=== PATIENT | female | born 1930 | race Caucasian/White ===

== ENCOUNTER 2021-01-28 13:03 | Observation (INO) | payer MEDICARE, BC ==
[2021-01-28] MEDS ORDERED: Sodium Chloride 0.9% 10 ML Syringe FLUSH PRN (13:06)
[2021-01-28] MEDS ORDERED: Sodium Chloride 0.9% 2.5 ML Syringe FLUSH PRN (13:06)
[2021-01-28] MEDS ORDERED: Sodium Chloride 0.9% 1,000 ML IV ONE ×3 (13:10→18:01)
[2021-01-28] MEDS ORDERED: Atropine 0.1 MG/ML 10 ML Syringe IVPUSH ONE (13:10)
--- NOTE | 2021-01-28 13:15 | EDM.PDOC ---
ED HPI GENERAL MEDICAL PROBLEM - General Chief Complaint: Neuro Symptoms/Deficits Stated Complaint: WEAKNESS Time Seen by Provider: 01/28/21 13:05 Source of Information: Reports: Patient, Family History Limitations: Reports: Other (dementia) - History of Present Illness INITIAL COMMENTS - FREE TEXT/NARRATIVE: 89-year-old female past medical history hypertension, dementia, vision and hearing problems presents for syncopal episode. History is very limited. Per EMS patient was at an eye doctor appointment and was complaining of dizziness prompting them to call EMS. Per patient's daughter patient had a near syncopal episode while at the eye doctor. She was leaning forward and looked as if she was about to pass out. She was assisted down to the ground and never actually did fall. Daughter notes that should patient lose pulses she would not want CPR or intubation. - Related Data Allergies Allergy/AdvReac Type Severity Reaction Status Date / Time No Known Allergies Allergy Verified 01/28/21 13:30 Home Meds: Home Meds Aspirin 81 mg PO DAILY 01/28/21 [History] Cholecalciferol (Vitamin D3) [Vitamin D3] 1,000 unit PO DAILY 01/28/21 [History] Donepezil HCl 10 mg PO DAILY@1800 01/28/21 [History] LORazepam [Ativan] 0.25 mg PO BEDTIME 01/28/21 [History] Losartan [Cozaar] 125 mg PO DAILY 01/28/21 [History] Metoprolol Tartrate [Lopressor] 25 mg PO Q12HR 01/28/21 [History] Sertraline [Zoloft] 50 mg PO DAILY 01/28/21 [History] Thyroid [[place] Thyroid] 60 mg PO ACDINNER 01/28/21 [History] amLODIPine [Norvasc] 5 mg PO DAILY 01/28/21 [History] cilostazoL [Cilostazol] 100 mg PO BID 01/28/21 [History] ED ROS GENERAL - Review of Systems Review Of Systems: Comprehensive ROS is negative, except as noted in HPI. ED EXAM, GENERAL - Physical Exam Exam: See Below Exam Limited By: No Limitations General Appearance: Alert, WD/WN, No Apparent Distress Eye Exam: Bilateral Eye: PERRL Throat/Mouth: Normal Voice, No Airway Compromise Head: Atraumatic, Normocephalic Neck: Normal Inspection Respiratory/Chest: No Respiratory Distress, Lungs Clear, Normal Breath Sounds, No Accessory Muscle Use Cardiovascular: Normal Peripheral Pulses, No Edema, Bradycardia GI/Abdominal: Soft, Non-Tender Extremities: Normal Inspection Neurological: Alert Psychiatric: Anxious Skin Exam: Warm, Dry, Intact, Normal Color #1 Interpretation EKG Date: 01/28/21 Time: 13:33 Rhythm: NSR Rate (Beats/Min): 73 [place]: Normal P-Wave: Present QRS: Normal ST-T: Normal QT: Normal [place]/PQ Interval: 153 Comparison: NA - No Prior EKG EKG Interpretation Comments: no acute ischemic changes Course - Vital Signs Last Recorded V/S: Last Vital Signs Temp 98.1 F 01/28/21 15:17 Pulse 68 01/28/21 17:43 Resp 18 01/28/21 17:43 BP 130/71 01/28/21 17:43 Pulse Ox 97 01/28/21 17:43 - Orders/Labs/Meds Orders: Active Orders 24 hr Category Date Time Status Accu Check [Blood Glucose Check, Bedside] [RC] ONETIME Care 01/28/21 13:07 Active Cardiac Monitoring [RC] . DIRECTED Care 01/28/21 13:06 Active Oxygen Therapy [RC] ASDIRECTED Care 01/28/21 13:09 Active Pulse Oximetry [RC] ASDIRECTED Care 01/28/21 13:06 Active REFLEX LACTIC ACID YES OR NO [CHEM] Routine Lab 01/28/21 15:18 Received Sodium Chloride 0.9% [Saline Flush] Med 01/28/21 13:06 Active 10 ml FLUSH ASDIRECTED PRN Sodium Chloride 0.9% [Saline Flush] Med 01/28/21 13:06 Active 2.5 ml FLUSH ASDIRECTED PRN Saline Lock Insert [OM.PC] Stat Oth 01/28/21 13:06 Ordered Medication Orders Sodium Chloride (Sodium Chloride 0.9% 10 Ml Syringe) 10 ml FLUSH ASDIRECTED PRN PRN Reason: Keep Vein Open Last Admin: 01/28/21 13:29 Dose: 10 ml Documented by: JENNIFER Sodium Chloride (Sodium Chloride 0.9% 2.5 Ml Syringe) 2.5 ml FLUSH ASDIRECTED PRN PRN Reason: Keep Vein Open Last Admin: 01/28/21 13:29 Dose: 2.5 ml Documented by: JENNIFER Labs: Laboratory Tests 01/28/21 01/28/21 01/28/21 Range/Units 13:11 14:15 14:35 WBC (4.0-11.0) K/uL RBC (4.30-5.90) M/uL Hgb (12.0-16.0) g/dL Hct (36.0-46.0) % MCV (80.0-98.0) fL MCH (27.0-32.0) pg MCHC (31.0-37.0) g/dL RDW Std Deviation (28.0-62.0) fl RDW Coeff of Scooby (11.0-15.0) % Plt Count (150-400) K/uL MPV (7.40-12.00) fL Neut % (Auto) (48.0-80.0) % Lymph % (Auto) (16.0-40.0) % [place] % (Auto) (0.0-15.0) % Eos % (Auto) (0.0-7.0) % Baso % (Auto) (0.0-1.5) % Neut # (Auto) (1.4-5.7) K/uL Lymph # (Auto) (0.6-2.4) K/uL [place] # (Auto) (0.0-0.8) K/uL Eos # (Auto) (0.0-0.7) K/uL Baso # (Auto) (0.0-0.1) K/uL Nucleated RBC % /100WBC Nucleated RBCs # K/uL INR APTT (18.6-31.3) SEC D-Dimer, Quantitative (0.0-0.50) mg/L FEU Sodium 139 (136-145) mmol/L Potassium 4.0 (3.5-5.1) mmol/L Chloride 102 (98-107) mmol/L Carbon Dioxide 30.5 (21.0-32.0) mmol/L BUN 22 H (7.0-18.0) mg/dL Creatinine 1.2 H (0.6-1.0) mg/dL Est Cr Clr Drug Dosing 21.81 mL/min Estimated GFR (MDRD) 42.4 ml/min Glucose 109 H (74-106) mg/dL POC Glucose 212 H (70-99) mg/dL Lactic Acid (0.4-2.0) mmol/L Calcium 8.2 L (8.5-10.1) mg/dL Magnesium 2.0 (1.8-2.4) mg/dL Total Bilirubin 0.5 (0.2-1.0) mg/dL AST 20 (15-37) IU/L ALT 19 (14-63) IU/L Alkaline Phosphatase 82 (46-116) U/L Troponin I < 0.050 (0.000-0.056) ng/mL B-Natriuretic Peptide (<100) PG/ML Total Protein 5.9 L (6.4-8.2) g/dL Albumin 3.0 L (3.4-5.0) g/dL Globulin 2.9 (2.6-4.0) g/dL Albumin/Globulin Ratio 1.0 (0.9-1.6) TSH, Ultra Sensitive 3.27 (0.36-3.74) uIU/mL Urine Color Urine Appearance Urine pH (5.0-8.0) Ur Specific [place] (1.001-1.035) Urine Protein (NEGATIVE) mg/dL Urine Glucose (UA) (NEGATIVE) mg/dL Urine Ketones (NEGATIVE) mg/dL Urine Occult Blood (NEGATIVE) Urine Nitrite (NEGATIVE) Urine Bilirubin (NEGATIVE) Urine Ictotest Urine Urobilinogen (<2.0) EU/dL Ur Leukocyte Esterase (NEGATIVE) U Hyaline Cast (Auto) (0-2/LPF) Urine RBC (0-2/HPF) Urine WBC (0-5/HPF) Ur Epithelial Cells (NONE-FEW) Urine Bacteria (NEGATIVE) Urine Mucus (NONE-MOD) SARS-CoV-2 RNA (INDIO) NEGATIVE (NEGATIVE) 01/28/21 01/28/21 01/28/21 Range/Units 14:35 14:35 14:35 WBC 4.30 (4.0-11.0) K/uL RBC 3.50 L (4.30-5.90) M/uL Hgb 11.7 L (12.0-16.0) g/dL Hct 34.4 L (36.0-46.0) % MCV 98.3 H (80.0-98.0) fL MCH 33.4 H (27.0-32.0) pg MCHC 34.0 (31.0-37.0) g/dL RDW Std Deviation 47.7 (28.0-62.0) fl RDW Coeff of Scooby 13 (11.0-15.0) % Plt Count 194 (150-400) K/uL MPV 8.70 (7.40-12.00) fL Neut % (Auto) 86.8 H (48.0-80.0) % Lymph % (Auto) 5.1 L (16.0-40.0) % [place] % (Auto) 6.7 (0.0-15.0) % Eos % (Auto) 0.9 (0.0-7.0) % Baso % (Auto) 0.5 (0.0-1.5) % Neut # (Auto) 3.7 (1.4-5.7) K/uL Lymph # (Auto) 0.2 L (0.6-2.4) K/uL [place] # (Auto) 0.3 (0.0-0.8) K/uL Eos # (Auto) 0.0 (0.0-0.7) K/uL Baso # (Auto) 0.0 (0.0-0.1) K/uL Nucleated RBC % 0.0 /100WBC Nucleated RBCs # 0 K/uL INR APTT (18.6-31.3) SEC D-Dimer, Quantitative (0.0-0.50) mg/L FEU Sodium (136-145) mmol/L Potassium (3.5-5.1) mmol/L Chloride (98-107) mmol/L Carbon Dioxide (21.0-32.0) mmol/L BUN (7.0-18.0) mg/dL Creatinine (0.6-1.0) mg/dL Est Cr Clr Drug Dosing mL/min Estimated GFR (MDRD) ml/min Glucose (74-106) mg/dL POC Glucose (70-99) mg/dL Lactic Acid 5.7 H* (0.4-2.0) mmol/L Calcium (8.5-10.1) mg/dL Magnesium (1.8-2.4) mg/dL Total Bilirubin (0.2-1.0) mg/dL AST (15-37) IU/L ALT (14-63) IU/L Alkaline Phosphatase (46-116) U/L Troponin I (0.000-0.056) ng/mL B-Natriuretic Peptide 358 H (<100) PG/ML Total Protein (6.4-8.2) g/dL Albumin (3.4-5.0) g/dL Globulin (2.6-4.0) g/dL Albumin/Globulin Ratio (0.9-1.6) TSH, Ultra Sensitive (0.36-3.74) uIU/mL Urine Color Urine Appearance Urine pH (5.0-8.0) Ur Specific [place] (1.001-1.035) Urine Protein (NEGATIVE) mg/dL Urine Glucose (UA) (NEGATIVE) mg/dL Urine Ketones (NEGATIVE) mg/dL Urine Occult Blood (NEGATIVE) Urine Nitrite (NEGATIVE) Urine Bilirubin (NEGATIVE) Urine Ictotest Urine Urobilinogen (<2.0) EU/dL Ur Leukocyte Esterase (NEGATIVE) U Hyaline Cast (Auto) (0-2/LPF) Urine RBC (0-2/HPF) Urine WBC (0-5/HPF) Ur Epithelial Cells (NONE-FEW) Urine Bacteria (NEGATIVE) Urine Mucus (NONE-MOD) SARS-CoV-2 RNA (INDIO) (NEGATIVE) 01/28/21 01/28/21 01/28/21 Range/Units 14:35 15:00 16:51 WBC (4.0-11.0) K/uL RBC (4.30-5.90) M/uL Hgb (12.0-16.0) g/dL Hct (36.0-46.0) % MCV (80.0-98.0) fL MCH (27.0-32.0) pg MCHC (31.0-37.0) g/dL RDW Std Deviation (28.0-62.0) fl RDW Coeff of Scooby (11.0-15.0) % Plt Count (150-400) K/uL MPV (7.40-12.00) fL Neut % (Auto) (48.0-80.0) % Lymph % (Auto) (16.0-40.0) % [place] % (Auto) (0.0-15.0) % Eos % (Auto) (0.0-7.0) % Baso % (Auto) (0.0-1.5) % Neut # (Auto) (1.4-5.7) K/uL Lymph # (Auto) (0.6-2.4) K/uL [place] # (Auto) (0.0-0.8) K/uL Eos # (Auto) (0.0-0.7) K/uL Baso # (Auto) (0.0-0.1) K/uL Nucleated RBC % /100WBC Nucleated RBCs # K/uL INR 1.08 APTT 21.9 (18.6-31.3) SEC D-Dimer, Quantitative 3.97 H (0.0-0.50) mg/L FEU Sodium (136-145) mmol/L Potassium (3.5-5.1) mmol/L Chloride (98-107) mmol/L Carbon Dioxide (21.0-32.0) mmol/L BUN (7.0-18.0) mg/dL Creatinine (0.6-1.0) mg/dL Est Cr Clr Drug Dosing mL/min Estimated GFR (MDRD) ml/min Glucose (74-106) mg/dL POC Glucose (70-99) mg/dL Lactic Acid (0.4-2.0) mmol/L Calcium (8.5-10.1) mg/dL Magnesium (1.8-2.4) mg/dL Total Bilirubin (0.2-1.0) mg/dL AST (15-37) IU/L ALT (14-63) IU/L Alkaline Phosphatase (46-116) U/L Troponin I < 0.050 (0.000-0.056) ng/mL B-Natriuretic Peptide (<100) PG/ML Total Protein (6.4-8.2) g/dL Albumin (3.4-5.0) g/dL Globulin (2.6-4.0) g/dL Albumin/Globulin Ratio (0.9-1.6) TSH, Ultra Sensitive (0.36-3.74) uIU/mL Urine Color YELLOW Urine Appearance SLT CLOUDY Urine pH 6.0 (5.0-8.0) Ur Specific [place] 1.025 (1.001-1.035) Urine Protein 30 H (NEGATIVE) mg/dL Urine Glucose (UA) NEGATIVE (NEGATIVE) mg/dL Urine Ketones 15 H (NEGATIVE) mg/dL Urine Occult Blood NEGATIVE (NEGATIVE) Urine Nitrite POSITIVE H (NEGATIVE) Urine Bilirubin SMALL H (NEGATIVE) Urine Ictotest NEGATIVE Urine Urobilinogen 1.0 (<2.0) EU/dL Ur Leukocyte Esterase TRACE H (NEGATIVE) U Hyaline Cast (Auto) 0-2 (0-2/LPF) Urine RBC 0-2 (0-2/HPF) Urine WBC 5-10 (0-5/HPF) Ur Epithelial Cells FEW (NONE-FEW) Urine Bacteria 3+ H (NEGATIVE) Urine Mucus LIGHT (NONE-MOD) SARS-CoV-2 RNA (INDIO) (NEGATIVE) Meds: Medications Generic Name Dose Route Start Last Admin Trade Name Freq PRN Reason Stop Dose Admin Sodium Chloride 10 ml 01/28/21 13:06 01/28/21 13:29 Sodium Chloride 0.9% 10 Ml Syringe FLUSH 10 ml ASDIRECTED PRN Administration Keep Vein Open Sodium Chloride 2.5 ml 01/28/21 13:06 01/28/21 13:29 Sodium Chloride 0.9% 2.5 Ml Syringe FLUSH 2.5 ml ASDIRECTED PRN Administration Keep Vein Open Discontinued Medications Generic Name Dose Route Start Last Admin Trade Name Freq PRN Reason Stop Dose Admin Atropine Sulfate 0.5 mg 01/28/21 13:10 01/28/21 13:28 Atropine 0.1 Mg/Ml 10 Ml Syringe IVPUSH 01/28/21 13:11 0.5 mg ONETIME ONE Administration Sodium Chloride 1,000 mls @ 999 mls/hr 01/28/21 13:10 01/28/21 13:28 Normal Saline IV 01/28/21 14:10 999 mls/hr .Bolus ONE Administration Sodium Chloride 1,000 mls @ 999 mls/hr 01/28/21 15:28 01/28/21 15:35 Normal Saline IV 01/28/21 16:28 999 mls/hr .Bolus ONE Administration Ceftriaxone Sodium/Dextrose 1 50 mls @ 100 mls/hr 01/28/21 15:28 01/28/21 15:35 gm/ Premix IV 01/28/21 15:57 100 mls/hr ONETIME ONE Administration Lorazepam Confirm 01/28/21 17:06 01/28/21 17:10 Lorazepam 2 Mg/Ml Sdv Administered 01/28/21 17:07 Not Given Dose 2 mg .ROUTE .STK-MED ONE Lorazepam 0.5 mg 01/28/21 17:09 01/28/21 17:11 Lorazepam 2 Mg/Ml Sdv IVPUSH 01/28/21 17:10 0.5 mg ONETIME ONE Administration - Re-Assessments/Exams Free Text/Narrative Re-Assessment/Exam: 01/28/21 13:33 Heart rate is improved to 73 after 0.5 mg of atropine. 01/28/21 15:29 Labs are remarkable for elevated lactate, normal white blood cell count, markedly elevated D-dimer, nitrate positive urinalysis. Will give ceftriaxone for UTI. Will give additional 1 L fluid bolus for total 2 L for elevated lactate. Will get CTA of the chest to rule out pulmonary embolism. 01/28/21 18:00 Repeat troponin is negative. Repeat lactate is being drawn now. Patient cannot tolerate CTA imaging of the chest secondary to inability to establish a large bore IV. That being said suspicion for pulmonary embolism is very low given the normal heart rate, lack of hypoxia. Will admit patient to hospitalist service for further work-up and management. Patient has been given antibiotics for UTI. Departure - Departure Time of Disposition: 18:00 Disposition: Refer to Observation Condition: Good Clinical Impression: UTI (urinary tract infection) Qualifiers: Urinary tract infection type: acute cystitis Hematuria presence: without hematuria Qualified Code(s): N30.00 - Acute cystitis without hematuria - Discharge Information Forms: ED Department Discharge Sepsis Event Note (ED) - Evaluation Sepsis Screening Result: No Definite Risk - Focused Exam Vital Signs: Vital Signs Temp Pulse Resp BP Pulse Ox 01/28/21 17:43 68 18 130/71 97 01/28/21 16:38 77 18 132/76 97 01/28/21 16:00 82 18 143/81 H 97 01/28/21 15:48 71 18 138/72 98 01/28/21 15:17 98.1 F 78 18 131/72 98 01/28/21 14:30 62 18 144/73 H 97 01/28/21 14:00 97.8 F 68 18 142/82 H 97 01/28/21 13:45 68 18 131/68 98 01/28/21 13:30 70 20 121/72 95 01/28/21 13:15 97.8 F 62 18 131/72 97 01/28/21 13:04 96.3 F L 47 L 16 98/45 L 86 L 01/28/21 13:03 52 L - My Orders Last 24 Hours: My Active Orders 01/28/21 13:06 Cardiac Monitoring [RC] . DIRECTED Pulse Oximetry [RC] ASDIRECTED Sodium Chloride 0.9% [Saline Flush] 10 ml FLUSH ASDIRECTED PRN Sodium Chloride 0.9% [Saline Flush] 2.5 ml FLUSH ASDIRECTED PRN Saline Lock Insert [OM.PC] Stat 01/28/21 13:07 Accu Check [Blood Glucose Check, Bedside] [RC] ONETIME 01/28/21 13:09 Oxygen Therapy [RC] ASDIRECTED 01/28/21 15:18 REFLEX LACTIC ACID YES OR NO [CHEM] Routine - Assessment/Plan Last 24 Hours: My Active Orders 01/28/21 13:06 Cardiac Monitoring [RC] . DIRECTED Pulse Oximetry [RC] ASDIRECTED Sodium Chloride 0.9% [Saline Flush] 10 ml FLUSH ASDIRECTED PRN Sodium Chloride 0.9% [Saline Flush] 2.5 ml FLUSH ASDIRECTED PRN Saline Lock Insert [OM.PC] Stat 01/28/21 13:07 Accu Check [Blood Glucose Check, Bedside] [RC] ONETIME 01/28/21 13:09 Oxygen Therapy [RC] ASDIRECTED 01/28/21 15:18 REFLEX LACTIC ACID YES OR NO [CHEM] Routine
--- NOTE | 2021-01-28 13:49 | CT ---
INDICATION: Stroke, syncopal episode, unknown if hit head. COMPARISON: None TECHNIQUE: CT of the head without IV contrast. Coronal and sagittal reconstructions are provided. FINDINGS: There is an area of asymmetric low attenuation in the left frontal lobe which could represent a subacute or chronic infarct (series 201, image 21). No associated edema or mass effect. No midline shift. No other evidence of acute infarct. No intracranial hemorrhage or abnormal extra-axial fluid collections. Moderate generalized cerebral and cerebellar volume loss with ex vacuo dilation of the lateral ventricles. Mild chronic small vessel ischemic disease. Orbits and extraocular muscles are symmetric. The paranasal sinuses and mastoid air cells are clear. No acute fracture identified. Soft tissues are unremarkable. IMPRESSION: : 1. 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 No mass effect or midline shift. 2. No other acute intracranial findings. 3. Moderate generalized cerebral volume loss. 4. Findings discussed with Rajiv Christie at 1:47 p.m. on 01/28/2021. Please note that all CT scans at this facility use dose modulation, iterative reconstruction, and/or weight-based dosing when appropriate to reduce radiation dose to as low as reasonably achievable. Dictated by Rowan Driver MD @ 01/28/2021 1:48:21 PM (Electronically Signed)
--- NOTE | 2021-01-28 14:15 | CR ---
INDICATION: Syncopal episode. TECHNIQUE: Upright portable AP image of the chest. COMPARISON: None. FINDINGS: Lungs and pleural spaces clear. Small calcified granuloma in the upper right lung. Post coronary bypass. Heart, mediastinum and pulmonary vessels normal. No significant osseous abnormality. IMPRESSION: 1. No acute abnormality. 2. Post coronary bypass. Dictated by Dane Carmona MD @ 01/28/2021 2:13:38 PM (Electronically Signed)
[2021-01-28 15:13] LABS: BLOOD UREA NITROGEN,BUN 22 mg/dL (7.0-18.0); CARBON DIOXIDE,CO2 30.5 mmol/L (21.0-32.0); CHLORIDE,CL 102 mmol/L (98-107); GLUCOSE RANDOM 109 mg/dL (74-106); SODIUM,NA 139 mmol/L (136-145)
[2021-01-28] MEDS ORDERED: cefTRIAXone 1 GM in Premix Bag 1 BAG IV ONE (15:28)
[2021-01-28] MEDS ORDERED: LORazepam 2 MG/ML SDV ONE (17:06)
[2021-01-28] MEDS ORDERED: LORazepam 2 MG/ML SDV IVPUSH ONE (17:09)
[2021-01-28] MEDS ORDERED: Morphine 10 MG/ML Syringe IVPUSH PRN (18:22)
[2021-01-28] MEDS ORDERED: Ondansetron 4 MG/2 ML SDV IVPUSH PRN (18:22)
[2021-01-28] MEDS ORDERED: Acetaminophen 325 MG Tab PO PRN (18:22)
[2021-01-28] MEDS ORDERED: Lactated Ringers 1,000 ML IV SCH (18:30)
[2021-01-28] MEDS ORDERED: Enoxaparin 30 MG/0.3 ML Syringe SUBCUT SCH (18:30)
--- NOTE | 2021-01-28 18:37 | PCM.HP.2 ---
H&P History of Present Illness - General Date of Service: 01/28/21 Admit Problem/Dx: Admission Diagnosis/Problem Admission Diagnosis/Problem UTI (urinary tract infection) due to urinary indwelling catheter - History of Present Illness Initial Comments - Free Text/Narative: 89-year-old female past medical history hypertension, dementia, glaucoma, recent TIA in November, vision and hearing problems presents for pre-syncopal episode. Per patient's daughter patient had a near syncopal episode while waiting for her eye doctor appointment. She was leaning forward and looked as if she was about to pass out. She was assisted down to the ground and never actually did fall. Daughter states that she looked dazed but never actually passed out. In the ER patient was found to be bradycardic in 40s with low blood pressure, although documented in the MAR patient is hypoxic but upon talking to the physician he states that that reading is not accurate and patient was actually never hypoxic in the ER. Patient received 25 mg of atropine which increased her heart rate. Patient also received IV fluid resuscitation which improved her blood pressure as well. Daughter stated that in case patient loses weight she does not want any CPR. Patient is DNR/DNI. Labs are remarkable for elevated lactate, normal white blood cell count, markedly elevated D-dimer, nitrate positive urinalysis. Patient was given ceftriaxone for UTI. An additional 1 L fluid bolus for total 2 L for elevated lactate was given as well. Repeat troponin was negative there was no concern of ACS on EKG. CTA of the chest to rule out a PE could not be done t because Of IV Line Could Not Be Established and the Patient As Patient Was Unable to Tolerate Any Needle BX and Was in Extreme Discomfort. Patient was admitted to the hospital for further management. To encounter patient's daughter was at bedside she states that patient is at her baseline mentation pleasantly confused. Patient is very hard of hearing without her hearing aids so history was limited and mostly obtained from patient's daughter. Patient's daughter at this point would not like to get any morning labs she states that in case patient deteriorates again she does not want any life-saving interventions she is not interested in central line pressors/and reiterated that patient is DNR/DNI. Daughter states that she would like to explore possibility of palliative/comfort care/hospice depending upon patient's hospital course. Patient lives at assisted living facility outside of the town. - Related Data Allergies/Adverse Reactions: Allergies Allergy/AdvReac Type Severity Reaction Status Date / Time No Known Allergies Allergy Verified 01/28/21 22:50 Home Medications: Home Meds Aspirin 81 mg PO DAILY 01/28/21 [History] Cholecalciferol (Vitamin D3) [Vitamin D3] 1,000 unit PO DAILY 01/28/21 [History] Donepezil HCl 10 mg PO DAILY@1800 01/28/21 [History] LORazepam [Ativan] 0.25 mg PO BEDTIME 01/28/21 [History] Losartan [Cozaar] 125 mg PO DAILY 01/28/21 [History] Metoprolol Tartrate [Lopressor] 25 mg PO Q12HR 01/28/21 [History] Sertraline [Zoloft] 50 mg PO DAILY 01/28/21 [History] Thyroid [Judsonia Thyroid] 60 mg PO ACDINNER 01/28/21 [History] amLODIPine [Norvasc] 5 mg PO DAILY 01/28/21 [History] cilostazoL [Cilostazol] 100 mg PO BID 01/28/21 [History] Past Medical History HEENT History: Reports: Glaucoma Cardiovascular History: Reports: Hypertension, Other (See Below) Other Cardiovascular History: PAD Respiratory History: Reports: None Gastrointestinal History: Reports: None Genitourinary History: Reports: None [employer] History: Reports: None Musculoskeletal History: Reports: None Neurological History: Reports: TIA Psychiatric History: Reports: Anxiety, Dementia, Depression Endocrine/Metabolic History: Reports: Hypothyroidism Hematologic History: Reports: None Immunologic History: Reports: None Oncologic (Cancer) History: Reports: None Dermatologic History: Reports: None - Infectious Disease History Infectious Disease History: Reports: None - Past Surgical History Head Surgeries/Procedures: Reports: None HEENT Surgical History: Reports: None Cardiovascular Surgical History: Reports: None Respiratory Surgical History: Reports: None GI Surgical History: Reports: None Female Surgical History: Reports: None Endocrine Surgical History: Reports: None Neurological Surgical History: Reports: None Musculoskeletal Surgical History: Reports: None Oncologic Surgical History: Reports: None Social & Family History - Family History Family Medical History: No Pertinent Family History - Tobacco Use Tobacco Use Status *Q: Never Tobacco User H&P Review of Systems - Review of Systems: Review Of Systems: Unable To Obtain Reason Not Obtained: Pleasantly confused due to dementia Exam - Exam Exam: See Below - Vital Signs Vital Signs: Last Vital Signs Temp 36.7 C 01/28/21 15:17 Pulse 68 01/28/21 17:43 Resp 18 01/28/21 17:43 BP 130/71 01/28/21 17:43 Pulse Ox 97 01/28/21 17:43 Weight: 42.638 kg - Exam General: Alert, Cooperative. No: Oriented, Moderate Distress, Sedated, Lethargic, Obtunded Neck: Supple Lungs: Clear to Auscultation, Normal Respiratory Effort Cardiovascular: Regular Rate, Regular Rhythm, Normal S1, Normal S2 GI/Abdominal Exam: Normal Bowel Sounds, Soft, Non-Tender - Patient Data Lab Results Last 24 hrs: Laboratory Results - last 24 hr 01/28/21 01/28/21 01/28/21 Range/Units 13:11 14:15 14:35 WBC (4.0-11.0) K/uL RBC (4.30-5.90) M/uL Hgb (12.0-16.0) g/dL Hct (36.0-46.0) % MCV (80.0-98.0) fL MCH (27.0-32.0) pg MCHC (31.0-37.0) g/dL RDW Std Deviation (28.0-62.0) fl RDW Coeff of Scooby (11.0-15.0) % Plt Count (150-400) K/uL MPV (7.40-12.00) fL Neut % (Auto) (48.0-80.0) % Lymph % (Auto) (16.0-40.0) % [place] % (Auto) (0.0-15.0) % Eos % (Auto) (0.0-7.0) % Baso % (Auto) (0.0-1.5) % Neut # (Auto) (1.4-5.7) K/uL Lymph # (Auto) (0.6-2.4) K/uL [place] # (Auto) (0.0-0.8) K/uL Eos # (Auto) (0.0-0.7) K/uL Baso # (Auto) (0.0-0.1) K/uL Nucleated RBC % /100WBC Nucleated RBCs # K/uL INR APTT (18.6-31.3) SEC D-Dimer, Quantitative (0.0-0.50) mg/L FEU Sodium 139 (136-145) mmol/L Potassium 4.0 (3.5-5.1) mmol/L Chloride 102 (98-107) mmol/L Carbon Dioxide 30.5 (21.0-32.0) mmol/L BUN 22 H (7.0-18.0) mg/dL Creatinine 1.2 H (0.6-1.0) mg/dL Est Cr Clr Drug Dosing 21.81 mL/min Estimated GFR (MDRD) 42.4 ml/min Glucose 109 H (74-106) mg/dL POC Glucose 212 H (70-99) mg/dL Lactic Acid (0.4-2.0) mmol/L Calcium 8.2 L (8.5-10.1) mg/dL Magnesium 2.0 (1.8-2.4) mg/dL Total Bilirubin 0.5 (0.2-1.0) mg/dL AST 20 (15-37) IU/L ALT 19 (14-63) IU/L Alkaline Phosphatase 82 (46-116) U/L Troponin I < 0.050 (0.000-0.056) ng/mL B-Natriuretic Peptide (<100) PG/ML Total Protein 5.9 L (6.4-8.2) g/dL Albumin 3.0 L (3.4-5.0) g/dL Globulin 2.9 (2.6-4.0) g/dL Albumin/Globulin Ratio 1.0 (0.9-1.6) TSH, Ultra Sensitive 3.27 (0.36-3.74) uIU/mL Urine Color Urine Appearance Urine pH (5.0-8.0) Ur Specific [place] (1.001-1.035) Urine Protein (NEGATIVE) mg/dL Urine Glucose (UA) (NEGATIVE) mg/dL Urine Ketones (NEGATIVE) mg/dL Urine Occult Blood (NEGATIVE) Urine Nitrite (NEGATIVE) Urine Bilirubin (NEGATIVE) Urine Ictotest Urine Urobilinogen (<2.0) EU/dL Ur Leukocyte Esterase (NEGATIVE) U Hyaline Cast (Auto) (0-2/LPF) Urine RBC (0-2/HPF) Urine WBC (0-5/HPF) Ur Epithelial Cells (NONE-FEW) Urine Bacteria (NEGATIVE) Urine Mucus (NONE-MOD) SARS-CoV-2 RNA (INDIO) NEGATIVE (NEGATIVE) 01/28/21 01/28/21 01/28/21 Range/Units 14:35 14:35 14:35 WBC 4.30 (4.0-11.0) K/uL RBC 3.50 L (4.30-5.90) M/uL Hgb 11.7 L (12.0-16.0) g/dL Hct 34.4 L (36.0-46.0) % MCV 98.3 H (80.0-98.0) fL MCH 33.4 H (27.0-32.0) pg MCHC 34.0 (31.0-37.0) g/dL RDW Std Deviation 47.7 (28.0-62.0) fl RDW Coeff of Scooby 13 (11.0-15.0) % Plt Count 194 (150-400) K/uL MPV 8.70 (7.40-12.00) fL Neut % (Auto) 86.8 H (48.0-80.0) % Lymph % (Auto) 5.1 L (16.0-40.0) % [place] % (Auto) 6.7 (0.0-15.0) % Eos % (Auto) 0.9 (0.0-7.0) % Baso % (Auto) 0.5 (0.0-1.5) % Neut # (Auto) 3.7 (1.4-5.7) K/uL Lymph # (Auto) 0.2 L (0.6-2.4) K/uL [place] # (Auto) 0.3 (0.0-0.8) K/uL Eos # (Auto) 0.0 (0.0-0.7) K/uL Baso # (Auto) 0.0 (0.0-0.1) K/uL Nucleated RBC % 0.0 /100WBC Nucleated RBCs # 0 K/uL INR APTT (18.6-31.3) SEC D-Dimer, Quantitative (0.0-0.50) mg/L FEU Sodium (136-145) mmol/L Potassium (3.5-5.1) mmol/L Chloride (98-107) mmol/L Carbon Dioxide (21.0-32.0) mmol/L BUN (7.0-18.0) mg/dL Creatinine (0.6-1.0) mg/dL Est Cr Clr Drug Dosing mL/min Estimated GFR (MDRD) ml/min Glucose (74-106) mg/dL POC Glucose (70-99) mg/dL Lactic Acid 5.7 H* (0.4-2.0) mmol/L Calcium (8.5-10.1) mg/dL Magnesium (1.8-2.4) mg/dL Total Bilirubin (0.2-1.0) mg/dL AST (15-37) IU/L ALT (14-63) IU/L Alkaline Phosphatase (46-116) U/L Troponin I (0.000-0.056) ng/mL B-Natriuretic Peptide 358 H (<100) PG/ML Total Protein (6.4-8.2) g/dL Albumin (3.4-5.0) g/dL Globulin (2.6-4.0) g/dL Albumin/Globulin Ratio (0.9-1.6) TSH, Ultra Sensitive (0.36-3.74) uIU/mL Urine Color Urine Appearance Urine pH (5.0-8.0) Ur Specific [place] (1.001-1.035) Urine Protein (NEGATIVE) mg/dL Urine Glucose (UA) (NEGATIVE) mg/dL Urine Ketones (NEGATIVE) mg/dL Urine Occult Blood (NEGATIVE) Urine Nitrite (NEGATIVE) Urine Bilirubin (NEGATIVE) Urine Ictotest Urine Urobilinogen (<2.0) EU/dL Ur Leukocyte Esterase (NEGATIVE) U Hyaline Cast (Auto) (0-2/LPF) Urine RBC (0-2/HPF) Urine WBC (0-5/HPF) Ur Epithelial Cells (NONE-FEW) Urine Bacteria (NEGATIVE) Urine Mucus (NONE-MOD) SARS-CoV-2 RNA (INDIO) (NEGATIVE) 01/28/21 01/28/21 01/28/21 Range/Units 14:35 15:00 16:51 WBC (4.0-11.0) K/uL RBC (4.30-5.90) M/uL Hgb (12.0-16.0) g/dL Hct (36.0-46.0) % MCV (80.0-98.0) fL MCH (27.0-32.0) pg MCHC (31.0-37.0) g/dL RDW Std Deviation (28.0-62.0) fl RDW Coeff of Scooby (11.0-15.0) % Plt Count (150-400) K/uL MPV (7.40-12.00) fL Neut % (Auto) (48.0-80.0) % Lymph % (Auto) (16.0-40.0) % [place] % (Auto) (0.0-15.0) % Eos % (Auto) (0.0-7.0) % Baso % (Auto) (0.0-1.5) % Neut # (Auto) (1.4-5.7) K/uL Lymph # (Auto) (0.6-2.4) K/uL [place] # (Auto) (0.0-0.8) K/uL Eos # (Auto) (0.0-0.7) K/uL Baso # (Auto) (0.0-0.1) K/uL Nucleated RBC % /100WBC Nucleated RBCs # K/uL INR 1.08 APTT 21.9 (18.6-31.3) SEC D-Dimer, Quantitative 3.97 H (0.0-0.50) mg/L FEU Sodium (136-145) mmol/L Potassium (3.5-5.1) mmol/L Chloride (98-107) mmol/L Carbon Dioxide (21.0-32.0) mmol/L BUN (7.0-18.0) mg/dL Creatinine (0.6-1.0) mg/dL Est Cr Clr Drug Dosing mL/min Estimated GFR (MDRD) ml/min Glucose (74-106) mg/dL POC Glucose (70-99) mg/dL Lactic Acid (0.4-2.0) mmol/L Calcium (8.5-10.1) mg/dL Magnesium (1.8-2.4) mg/dL Total Bilirubin (0.2-1.0) mg/dL AST (15-37) IU/L ALT (14-63) IU/L Alkaline Phosphatase (46-116) U/L Troponin I < 0.050 (0.000-0.056) ng/mL B-Natriuretic Peptide (<100) PG/ML Total Protein (6.4-8.2) g/dL Albumin (3.4-5.0) g/dL Globulin (2.6-4.0) g/dL Albumin/Globulin Ratio (0.9-1.6) TSH, Ultra Sensitive (0.36-3.74) uIU/mL Urine Color YELLOW Urine Appearance SLT CLOUDY Urine pH 6.0 (5.0-8.0) Ur Specific [place] 1.025 (1.001-1.035) Urine Protein 30 H (NEGATIVE) mg/dL Urine Glucose (UA) NEGATIVE (NEGATIVE) mg/dL Urine Ketones 15 H (NEGATIVE) mg/dL Urine Occult Blood NEGATIVE (NEGATIVE) Urine Nitrite POSITIVE H (NEGATIVE) Urine Bilirubin SMALL H (NEGATIVE) Urine Ictotest NEGATIVE Urine Urobilinogen 1.0 (<2.0) EU/dL Ur Leukocyte Esterase TRACE H (NEGATIVE) U Hyaline Cast (Auto) 0-2 (0-2/LPF) Urine RBC 0-2 (0-2/HPF) Urine WBC 5-10 (0-5/HPF) Ur Epithelial Cells FEW (NONE-FEW) Urine Bacteria 3+ H (NEGATIVE) Urine Mucus LIGHT (NONE-MOD) SARS-CoV-2 RNA (INDIO) (NEGATIVE) Result Diagrams: 01/28/21 14:35 01/28/21 14:15 Sepsis Event Note - Evaluation Sepsis Screening Result: No Definite Risk - Focused Exam Vital Signs: Vital Signs Temp Pulse Resp BP Pulse Ox 01/28/21 17:43 68 18 130/71 97 01/28/21 16:38 77 18 132/76 97 01/28/21 16:00 82 18 143/81 H 97 01/28/21 15:48 71 18 138/72 98 01/28/21 15:17 36.7 C 78 18 131/72 98 01/28/21 14:30 62 18 144/73 H 97 01/28/21 14:00 36.6 C 68 18 142/82 H 97 01/28/21 13:45 68 18 131/68 98 01/28/21 13:30 70 20 121/72 95 01/28/21 13:15 36.6 C 62 18 131/72 97 01/28/21 13:04 35.7 C L 47 L 16 98/45 L 86 L 01/28/21 13:03 52 L - Problem List (1) UTI (urinary tract infection) SNOMED Code(s): 93907728 ICD Code: N39.0 - URINARY TRACT INFECTION, SITE NOT SPECIFIED Status: Acute Current Visit: Yes Qualifiers: Urinary tract infection type: acute cystitis Hematuria presence: without hematuria Qualified Code(s): N30.00 - Acute cystitis without hematuria (2) Hypotension SNOMED Code(s): 37000975 ICD Code: I95.9 - HYPOTENSION, UNSPECIFIED Status: Acute Current Visit: Yes (3) Pre-syncope SNOMED Code(s): 636066403 ICD Code: R55 - SYNCOPE AND COLLAPSE Status: Acute Current Visit: Yes (4) Elevated LDH SNOMED Code(s): 521476409 ICD Code: R74.02 - ELEVATION OF LEVELS OF LACTIC ACID DEHYDROGENASE [LDH] Status: Acute Current Visit: Yes (5) History of TIA (transient ischemic attack) SNOMED Code(s): 674703062 ICD Code: Z86.73 - PRSNL HX OF TIA (TIA), AND CEREB INFRC W/O RESID DEFICITS Status: Acute Current Visit: Yes (6) Glaucoma SNOMED Code(s): 87217511 ICD Code: H40.9 - UNSPECIFIED GLAUCOMA Status: Acute Current Visit: Yes (7) Dementia SNOMED Code(s): 54399411 ICD Code: F03.90 - UNSPECIFIED DEMENTIA WITHOUT BEHAVIORAL DISTURBANCE Status: Acute Current Visit: Yes (8) Palliative care status SNOMED Code(s): 065509411 ICD Code: Z51.5 - ENCOUNTER FOR PALLIATIVE CARE Status: Acute Current Visit: Yes Problem List Initiated/Reviewed/Updated: Yes Orders Last 24hrs: Active Orders 24 hr Category Date Time Status Patient Status [ADT] Routine ADT 01/28/21 18:02 Active Accu Check [Blood Glucose Check, Bedside] [RC] ONETIME Care 01/28/21 13:07 Active Ambulate [RC] ASDIRECTED Care 01/28/21 18:22 Ordered Cardiac Monitoring [RC] . DIRECTED Care 01/28/21 13:06 Active Oxygen Therapy [RC] ASDIRECTED Care 01/28/21 13:09 Active Oxygen Therapy [RC] PRN Care 01/28/21 18:22 Ordered Pulse Oximetry [RC] ASDIRECTED Care 01/28/21 13:06 Active VTE/DVT Education [RC] PER UNIT ROUTINE Care 01/28/21 18:22 Ordered Vital Signs [RC] Q4H Care 01/28/21 18:22 Ordered Heart Healthy Diet [DIET] Diet 01/28/21 Dinner Ordered BMP [BASIC METABOLIC PANEL,BMP] [CHEM] AM Lab 01/29/21 05:11 Ordered CBC WITH AUTO DIFF [HEME] AM Lab 01/29/21 05:11 Ordered LACTIC ACID [CHEM] Stat Lab 01/28/21 18:14 Ordered Acetaminophen [TylenoL] Med 01/28/21 18:22 Ordered 650 mg PO Q4H PRN Enoxaparin [Lovenox] Med 01/28/21 18:30 Ordered 30 mg SUBCUT Q24H Lactated Ringers @ 125 MLS/HR(1,000ml) Med 01/28/21 18:30 Ordered Lactated Ringers [Ringers, Lactated] 1,000 ml IV ASDIRECTED Morphine Med 01/28/21 18:22 Ordered 1 mg IVPUSH Q3H PRN Ondansetron [Zofran] Med 01/28/21 18:22 Ordered 4 mg IVPUSH Q4H PRN Sodium Chloride 0.9% [Normal Saline] 1,000 ml Med 01/28/21 18:01 Active IV .Bolus Sodium Chloride 0.9% [Saline Flush] Med 01/28/21 13:06 Active 10 ml FLUSH ASDIRECTED PRN Sodium Chloride 0.9% [Saline Flush] Med 01/28/21 13:06 Active 2.5 ml FLUSH ASDIRECTED PRN Saline Lock Insert [OM.PC] Stat Oth 01/28/21 13:06 Ordered Resuscitation Status Routine Resus Stat 01/28/21 18:22 Ordered Medication Orders Acetaminophen (Acetaminophen 325 Mg Tab) 650 mg PO Q4H PRN PRN Reason: Pain (Mild 1-3)/fever Enoxaparin Sodium (Enoxaparin 30 Mg/0.3 Ml Syringe) 30 mg SUBCUT Q24H KRISTINA Sodium Chloride (Normal Saline) 1,000 mls @ 100 mls/hr IV .Bolus ONE Stop: 01/29/21 04:00 Last Admin: 01/28/21 18:07 Dose: 100 mls/hr Documented by: JENNIFER Lactated Ringer's (Ringers, Lactated) 1,000 mls @ 125 mls/hr IV ASDIRECTED KRISTINA Morphine Sulfate (Morphine 10 Mg/Ml Syringe) 1 mg IVPUSH Q3H PRN PRN Reason: Pain (severe 7-10) Stop: 01/29/21 18:24 Ondansetron HCl (Ondansetron 4 Mg/2 Ml Sdv) 4 mg IVPUSH Q4H PRN PRN Reason: Nausea/Vomiting Sodium Chloride (Sodium Chloride 0.9% 10 Ml Syringe) 10 ml FLUSH ASDIRECTED PRN PRN Reason: Keep Vein Open Last Admin: 01/28/21 13:29 Dose: 10 ml Documented by: JENNIFER Sodium Chloride (Sodium Chloride 0.9% 2.5 Ml Syringe) 2.5 ml FLUSH ASDIRECTED PRN PRN Reason: Keep Vein Open Last Admin: 01/28/21 13:29 Dose: 2.5 ml Documented by: JENNIFER Assessment/Plan Comment:: Patient is a 89-year-old female admitted for presyncope, hypotension and bradycardia Patient's symptoms have resolved, she is on IV fluid for hydration Hypertension and urticaria could be secondary to patient being on beta-tin Hold all antihypertensives including beta-tin Patient does have some UTI so will be treated with IV Rocephin Trend lactate likely elevated due to hypotension Patient started does not want any repeat labs in the a.m. so will not be ordering them Patient seems to be improving currently would like to be discharged in the a.m. Daughter is interested and consult with palliative/hospice care in order to determine goals of care, regarding hospice consult
[2021-01-28] MEDS ORDERED: hydrALAZINE 20 MG/ML SDV IVPUSH ONE (23:55)
[2021-01-29] MEDS ORDERED: Magnesium Sulfate/Water 100 ML ONE (04:06)
--- NOTE | 2021-01-29 05:06 | PCM.SN.2 ---
- Free Text/Narrative Note: Patient had an episode of sustained v-tach but never lost her pulse, V-fib was reported on tele but it looks more so like Vtach on the strip. Amiodarone bolus was administered, and IV mag was given as well. Patient was awake and alert the whole time. Philomena cueva was called but patient is DNR/DNI and never lost her pul se. Patient was in sinus tachy. EKG had missing v6 lead, otherwise showed Afib with HR of 124 and LBBB, Upon further discussion with family/daughter at bedside, it was decided to make patient comfort care/hospice as patient was visibly very anxious from all the activity around her and kept saying she is hurting but isnt sure where. patient denied any chest pain or sob. Tele was removed, comfort care measures were started per daughters request. brusher tender called to bedside,
[2021-01-29] MEDS ORDERED: LORazepam 2 MG/ML SDV IVPUSH PRN (05:07)
[2021-01-29] MEDS ORDERED: Morphine 2 MG/ML SYRINGE IVPUSH PRN ×2 (05:08→05:30)
[2021-01-29] MEDS ORDERED: cefTRIAXone 1 GM in Premix Bag 1 BAG IV SCH (09:00)
--- NOTE | 2021-01-29 14:38 | PCM.DCSUM1 ---
Discharge Summary - Discharge Data Discharge Disposition: Home, Self-Care 01 Condition: Stable - Referral to Home Health Primary Care Physician: PCP None - Discharge Diagnosis/Problem(s) (1) UTI (urinary tract infection) SNOMED Code(s): 28313274 ICD Code: N39.0 - URINARY TRACT INFECTION, SITE NOT SPECIFIED Status: Acute Current Visit: Yes Qualifiers: Urinary tract infection type: acute cystitis Hematuria presence: without hematuria Qualified Code(s): N30.00 - Acute cystitis without hematuria (2) Hypotension SNOMED Code(s): 11335354 ICD Code: I95.9 - HYPOTENSION, UNSPECIFIED Status: Acute Current Visit: Yes (3) Pre-syncope SNOMED Code(s): 923225833 ICD Code: R55 - SYNCOPE AND COLLAPSE Status: Acute Current Visit: Yes (4) Elevated LDH SNOMED Code(s): 769463677 ICD Code: R74.02 - ELEVATION OF LEVELS OF LACTIC ACID DEHYDROGENASE [LDH] Status: Acute Current Visit: Yes (5) History of TIA (transient ischemic attack) SNOMED Code(s): 906388506 ICD Code: Z86.73 - PRSNL HX OF TIA (TIA), AND CEREB INFRC W/O RESID DEFICITS Status: Acute Current Visit: Yes (6) Glaucoma SNOMED Code(s): 40463288 ICD Code: H40.9 - UNSPECIFIED GLAUCOMA Status: Acute Current Visit: Yes (7) Dementia SNOMED Code(s): 50572896 ICD Code: F03.90 - UNSPECIFIED DEMENTIA WITHOUT BEHAVIORAL DISTURBANCE Status: Acute Current Visit: Yes (8) Palliative care status SNOMED Code(s): 098632149 ICD Code: Z51.5 - ENCOUNTER FOR PALLIATIVE CARE Status: Acute Current Visit: Yes - Patient Summary/Data Consults: Consultations 01/28/21 22:44 Consult to Hospice [CONS] Routine - Discharge Plan Home Medications: Home Meds Aspirin 81 mg PO DAILY 01/28/21 [History] Cholecalciferol (Vitamin D3) [Vitamin D3] 1,000 unit PO DAILY 01/28/21 [History] Donepezil HCl 10 mg PO DAILY@1800 01/28/21 [History] LORazepam [Ativan] 0.25 mg PO BEDTIME 01/28/21 [History] Losartan [Cozaar] 125 mg PO DAILY 01/28/21 [History] Metoprolol Tartrate [Lopressor] 25 mg PO Q12HR 01/28/21 [History] Sertraline [Zoloft] 50 mg PO DAILY 01/28/21 [History] Thyroid [Olivia Thyroid] 60 mg PO ACDINNER 01/28/21 [History] amLODIPine [Norvasc] 5 mg PO DAILY 01/28/21 [History] cilostazoL [Cilostazol] 100 mg PO BID 01/28/21 [History] Forms: ED Department Discharge Referrals: PCP,None [Primary Care Provider] - - Patient Data Vitals - Most Recent: Last Vital Signs Temp 36.3 C 01/29/21 04:00 Pulse 66 01/29/21 04:00 Resp 16 01/29/21 04:00 BP 186/70 H 01/29/21 04:00 Pulse Ox 94 L 01/29/21 04:00 Weight - Most Recent: 45.5 kg Lab Results - Last 24 hrs: Laboratory Results - last 24 hr 01/28/21 01/28/21 01/28/21 Range/Units 14:15 14:35 14:35 WBC 4.30 (4.0-11.0) K/uL RBC 3.50 L (4.30-5.90) M/uL Hgb 11.7 L (12.0-16.0) g/dL Hct 34.4 L (36.0-46.0) % MCV 98.3 H (80.0-98.0) fL MCH 33.4 H (27.0-32.0) pg MCHC 34.0 (31.0-37.0) g/dL RDW Std Deviation 47.7 (28.0-62.0) fl RDW Coeff of Scooby 13 (11.0-15.0) % Plt Count 194 (150-400) K/uL MPV 8.70 (7.40-12.00) fL Neut % (Auto) 86.8 H (48.0-80.0) % Lymph % (Auto) 5.1 L (16.0-40.0) % [place] % (Auto) 6.7 (0.0-15.0) % Eos % (Auto) 0.9 (0.0-7.0) % Baso % (Auto) 0.5 (0.0-1.5) % Neut # (Auto) 3.7 (1.4-5.7) K/uL Lymph # (Auto) 0.2 L (0.6-2.4) K/uL [place] # (Auto) 0.3 (0.0-0.8) K/uL Eos # (Auto) 0.0 (0.0-0.7) K/uL Baso # (Auto) 0.0 (0.0-0.1) K/uL Nucleated RBC % 0.0 /100WBC Nucleated RBCs # 0 K/uL INR APTT (18.6-31.3) SEC D-Dimer, Quantitative (0.0-0.50) mg/L FEU Sodium 139 (136-145) mmol/L Potassium 4.0 (3.5-5.1) mmol/L Chloride 102 (98-107) mmol/L Carbon Dioxide 30.5 (21.0-32.0) mmol/L BUN 22 H (7.0-18.0) mg/dL Creatinine 1.2 H (0.6-1.0) mg/dL Est Cr Clr Drug Dosing 21.81 mL/min Estimated GFR (MDRD) 42.4 ml/min Glucose 109 H (74-106) mg/dL Lactic Acid (0.4-2.0) mmol/L Calcium 8.2 L (8.5-10.1) mg/dL Magnesium 2.0 (1.8-2.4) mg/dL Total Bilirubin 0.5 (0.2-1.0) mg/dL AST 20 (15-37) IU/L ALT 19 (14-63) IU/L Alkaline Phosphatase 82 (46-116) U/L Troponin I < 0.050 (0.000-0.056) ng/mL B-Natriuretic Peptide (<100) PG/ML Total Protein 5.9 L (6.4-8.2) g/dL Albumin 3.0 L (3.4-5.0) g/dL Globulin 2.9 (2.6-4.0) g/dL Albumin/Globulin Ratio 1.0 (0.9-1.6) TSH, Ultra Sensitive 3.27 (0.36-3.74) uIU/mL Urine Color Urine Appearance Urine pH (5.0-8.0) Ur Specific [place] (1.001-1.035) Urine Protein (NEGATIVE) mg/dL Urine Glucose (UA) (NEGATIVE) mg/dL Urine Ketones (NEGATIVE) mg/dL Urine Occult Blood (NEGATIVE) Urine Nitrite (NEGATIVE) Urine Bilirubin (NEGATIVE) Urine Ictotest Urine Urobilinogen (<2.0) EU/dL Ur Leukocyte Esterase (NEGATIVE) U Hyaline Cast (Auto) (0-2/LPF) Urine RBC (0-2/HPF) Urine WBC (0-5/HPF) Ur Epithelial Cells (NONE-FEW) Urine Bacteria (NEGATIVE) Urine Mucus (NONE-MOD) SARS-CoV-2 RNA (INDIO) NEGATIVE (NEGATIVE) 01/28/21 01/28/21 01/28/21 Range/Units 14:35 14:35 14:35 WBC (4.0-11.0) K/uL RBC (4.30-5.90) M/uL Hgb (12.0-16.0) g/dL Hct (36.0-46.0) % MCV (80.0-98.0) fL MCH (27.0-32.0) pg MCHC (31.0-37.0) g/dL RDW Std Deviation (28.0-62.0) fl RDW Coeff of Scooby (11.0-15.0) % Plt Count (150-400) K/uL MPV (7.40-12.00) fL Neut % (Auto) (48.0-80.0) % Lymph % (Auto) (16.0-40.0) % [place] % (Auto) (0.0-15.0) % Eos % (Auto) (0.0-7.0) % Baso % (Auto) (0.0-1.5) % Neut # (Auto) (1.4-5.7) K/uL Lymph # (Auto) (0.6-2.4) K/uL [place] # (Auto) (0.0-0.8) K/uL Eos # (Auto) (0.0-0.7) K/uL Baso # (Auto) (0.0-0.1) K/uL Nucleated RBC % /100WBC Nucleated RBCs # K/uL INR 1.08 APTT 21.9 (18.6-31.3) SEC D-Dimer, Quantitative 3.97 H (0.0-0.50) mg/L FEU Sodium (136-145) mmol/L Potassium (3.5-5.1) mmol/L Chloride (98-107) mmol/L Carbon Dioxide (21.0-32.0) mmol/L BUN (7.0-18.0) mg/dL Creatinine (0.6-1.0) mg/dL Est Cr Clr Drug Dosing mL/min Estimated GFR (MDRD) ml/min Glucose (74-106) mg/dL Lactic Acid 5.7 H* (0.4-2.0) mmol/L Calcium (8.5-10.1) mg/dL Magnesium (1.8-2.4) mg/dL Total Bilirubin (0.2-1.0) mg/dL AST (15-37) IU/L ALT (14-63) IU/L Alkaline Phosphatase (46-116) U/L Troponin I (0.000-0.056) ng/mL B-Natriuretic Peptide 358 H (<100) PG/ML Total Protein (6.4-8.2) g/dL Albumin (3.4-5.0) g/dL Globulin (2.6-4.0) g/dL Albumin/Globulin Ratio (0.9-1.6) TSH, Ultra Sensitive (0.36-3.74) uIU/mL Urine Color Urine Appearance Urine pH (5.0-8.0) Ur Specific [place] (1.001-1.035) Urine Protein (NEGATIVE) mg/dL Urine Glucose (UA) (NEGATIVE) mg/dL Urine Ketones (NEGATIVE) mg/dL Urine Occult Blood (NEGATIVE) Urine Nitrite (NEGATIVE) Urine Bilirubin (NEGATIVE) Urine Ictotest Urine Urobilinogen (<2.0) EU/dL Ur Leukocyte Esterase (NEGATIVE) U Hyaline Cast (Auto) (0-2/LPF) Urine RBC (0-2/HPF) Urine WBC (0-5/HPF) Ur Epithelial Cells (NONE-FEW) Urine Bacteria (NEGATIVE) Urine Mucus (NONE-MOD) SARS-CoV-2 RNA (INDIO) (NEGATIVE) 01/28/21 01/28/21 01/28/21 Range/Units 15:00 16:51 18:16 WBC (4.0-11.0) K/uL RBC (4.30-5.90) M/uL Hgb (12.0-16.0) g/dL Hct (36.0-46.0) % MCV (80.0-98.0) fL MCH (27.0-32.0) pg MCHC (31.0-37.0) g/dL RDW Std Deviation (28.0-62.0) fl RDW Coeff of Scooby (11.0-15.0) % Plt Count (150-400) K/uL MPV (7.40-12.00) fL Neut % (Auto) (48.0-80.0) % Lymph % (Auto) (16.0-40.0) % [place] % (Auto) (0.0-15.0) % Eos % (Auto) (0.0-7.0) % Baso % (Auto) (0.0-1.5) % Neut # (Auto) (1.4-5.7) K/uL Lymph # (Auto) (0.6-2.4) K/uL [place] # (Auto) (0.0-0.8) K/uL Eos # (Auto) (0.0-0.7) K/uL Baso # (Auto) (0.0-0.1) K/uL Nucleated RBC % /100WBC Nucleated RBCs # K/uL INR APTT (18.6-31.3) SEC D-Dimer, Quantitative (0.0-0.50) mg/L FEU Sodium (136-145) mmol/L Potassium (3.5-5.1) mmol/L Chloride (98-107) mmol/L Carbon Dioxide (21.0-32.0) mmol/L BUN (7.0-18.0) mg/dL Creatinine (0.6-1.0) mg/dL Est Cr Clr Drug Dosing mL/min Estimated GFR (MDRD) ml/min Glucose (74-106) mg/dL Lactic Acid 4.1 H* (0.4-2.0) mmol/L Calcium (8.5-10.1) mg/dL Magnesium (1.8-2.4) mg/dL Total Bilirubin (0.2-1.0) mg/dL AST (15-37) IU/L ALT (14-63) IU/L Alkaline Phosphatase (46-116) U/L Troponin I < 0.050 (0.000-0.056) ng/mL B-Natriuretic Peptide (<100) PG/ML Total Protein (6.4-8.2) g/dL Albumin (3.4-5.0) g/dL Globulin (2.6-4.0) g/dL Albumin/Globulin Ratio (0.9-1.6) TSH, Ultra Sensitive (0.36-3.74) uIU/mL Urine Color YELLOW Urine Appearance SLT CLOUDY Urine pH 6.0 (5.0-8.0) Ur Specific [place] 1.025 (1.001-1.035) Urine Protein 30 H (NEGATIVE) mg/dL Urine Glucose (UA) NEGATIVE (NEGATIVE) mg/dL Urine Ketones 15 H (NEGATIVE) mg/dL Urine Occult Blood NEGATIVE (NEGATIVE) Urine Nitrite POSITIVE H (NEGATIVE) Urine Bilirubin SMALL H (NEGATIVE) Urine Ictotest NEGATIVE Urine Urobilinogen 1.0 (<2.0) EU/dL Ur Leukocyte Esterase TRACE H (NEGATIVE) U Hyaline Cast (Auto) 0-2 (0-2/LPF) Urine RBC 0-2 (0-2/HPF) Urine WBC 5-10 (0-5/HPF) Ur Epithelial Cells FEW (NONE-FEW) Urine Bacteria 3+ H (NEGATIVE) Urine Mucus LIGHT (NONE-MOD) SARS-CoV-2 RNA (INDIO) (NEGATIVE) Med Orders - Current: Current Medications Acetaminophen (Acetaminophen 325 Mg Tab) 650 mg PO Q4H PRN PRN Reason: Pain (Mild 1-3)/fever Lactated Ringer's (Ringers, Lactated) 1,000 mls @ 70 mls/hr IV ASDIRECTED [facility] Ceftriaxone Sodium/Dextrose 1 (gm/ Premix) 50 mls @ 100 mls/hr IV Q24H [facility] Last Admin: 01/29/21 08:49 Dose: 100 mls/hr Documented by: Lorazepam (Lorazepam 2 Mg/Ml Sdv) 2 mg IVPUSH Q4H PRN PRN Reason: Anxiety Morphine Sulfate (Morphine 2 Mg/Ml Syringe) 2 mg IVPUSH Q2H PRN PRN Reason: Pain (severe 7-10) Morphine Sulfate (Morphine 2 Mg/Ml Syringe) 1 mg IVPUSH Q3H PRN PRN Reason: Pain (moderate 4-6) Stop: 01/29/21 18:24 Ondansetron HCl (Ondansetron 4 Mg/2 Ml Sdv) 4 mg IVPUSH Q4H PRN PRN Reason: Nausea/Vomiting Sodium Chloride (Sodium Chloride 0.9% 10 Ml Syringe) 10 ml FLUSH ASDIRECTED PRN PRN Reason: Keep Vein Open Last Admin: 01/28/21 13:29 Dose: 10 ml Documented by: Sodium Chloride (Sodium Chloride 0.9% 2.5 Ml Syringe) 2.5 ml FLUSH ASDIRECTED PRN PRN Reason: Keep Vein Open Last Admin: 01/28/21 13:29 Dose: 2.5 ml Documented by: Discontinued Medications Atropine Sulfate (Atropine 0.1 Mg/Ml 10 Ml Syringe) 0.5 mg IVPUSH ONETIME ONE Stop: 01/28/21 13:11 Last Admin: 01/28/21 13:28 Dose: 0.5 mg Documented by: Enoxaparin Sodium (Enoxaparin 30 Mg/0.3 Ml Syringe) 30 mg SUBCUT Q24H KRISTINA Last Admin: 01/28/21 23:08 Dose: 30 mg Documented by: Hydralazine HCl (Hydralazine 20 Mg/Ml Sdv) 20 mg IVPUSH ONETIME ONE Stop: 01/28/21 23:56 Last Admin: 01/29/21 03:38 Dose: 20 mg Documented by: Sodium Chloride (Normal Saline) 1,000 mls @ 999 mls/hr IV .Bolus ONE Stop: 01/28/21 14:10 Last Admin: 01/28/21 13:28 Dose: 999 mls/hr Documented by: Sodium Chloride (Normal Saline) 1,000 mls @ 999 mls/hr IV .Bolus ONE Stop: 01/28/21 16:28 Last Admin: 01/28/21 15:35 Dose: 999 mls/hr Documented by: Ceftriaxone Sodium/Dextrose 1 (gm/ Premix) 50 mls @ 100 mls/hr IV ONETIME ONE Stop: 01/28/21 15:57 Last Admin: 01/28/21 15:35 Dose: 100 mls/hr Documented by: Sodium Chloride (Normal Saline) 1,000 mls @ 100 mls/hr IV .Bolus ONE Stop: 01/29/21 04:00 Last Admin: 01/28/21 18:07 Dose: 100 mls/hr Documented by: Amiodarone HCl/Dextrose (Nexterone In Dextrose 150 Mg/100 Ml) Confirm Administered Dose 100 mls @ as directed IV .STK-MED ONE Stop: 01/29/21 04:07 Last Admin: 01/29/21 04:09 Dose: 500 mls/hr Documented by: Magnesium Sulfate (Magnesium Sulfate In Water 4 Gm/100 Ml) Confirm Administered Dose 100 mls @ as directed .ROUTE .STK-MED ONE Stop: 01/29/21 04:07 Last Admin: 01/29/21 04:11 Dose: 200 mls/hr Documented by: Lorazepam (Lorazepam 2 Mg/Ml Sdv) Confirm Administered Dose 2 mg .ROUTE .STK-MED ONE Stop: 01/28/21 17:07 Last Admin: 01/28/21 17:10 Dose: Not Given Documented by: Lorazepam (Lorazepam 2 Mg/Ml Sdv) 0.5 mg IVPUSH ONETIME ONE Stop: 01/28/21 17:10 Last Admin: 01/28/21 17:11 Dose: 0.5 mg Documented by: Morphine Sulfate (Morphine 10 Mg/Ml Syringe) 1 mg IVPUSH Q3H PRN PRN Reason: Pain (moderate 4-6) Stop: 01/29/21 18:24
== END 2021-01-29 17:30 | disposition hospice, home (50) ==
LOC: MW.ED 13:03 → MW.MS 18:02
PROVIDERS: ADMIT Student in an Organized Health Care Education/Training Program; ATTEND Student in an Organized Health Care Education/Training Program
DX: T83.592A Infection and inflammatory reaction due to indwelling ureteral stent, initial encounter (principal); N30.00 Acute cystitis without hematuria; I95.9 Hypotension, unspecified; R55 Syncope and collapse; R74.02 Elevation of levels of lactic acid dehydrogenase [LDH]; I47.2 Ventricular tachycardia; I48.91 Unspecified atrial fibrillation; H40.9 Unspecified glaucoma; F03.90 Unspecified dementia, unspecified severity, without behavioral disturbance, psychotic disturbance, mood disturbance, and anxiety; I10 Essential (primary) hypertension; E03.9 Hypothyroidism, unspecified; Z51.5 Encounter for palliative care; Z86.73 Personal history of transient ischemic attack (TIA), and cerebral infarction without residual deficits; Z20.822 Contact with and (suspected) exposure to COVID-19; Z95.1 Presence of aortocoronary bypass graft; Z79.82 Long term (current) use of aspirin; Z79.899 Other long term (current) drug therapy; Z79.890 Hormone replacement therapy
CPT/HCPCS: 36415; 70450; 71045; 80053; 81001; 82947; 83605; 83735; 83880; 84443; 84484; 85025; 85379; 85610; 85730; 93005; 96365; 96375; 99285; J0282; J0360; J0461; J0696; J1650; J2060; J3475; J7030; U0002; 96372; G0378